=== PATIENT | female | born 1995 | race Caucasian/White ===

== ENCOUNTER 2019-06-29 08:37 | Emergency (ER) | payer BC ==
[~2019-06-29] VITALS: Ht 175.3 cm; Wt 93.0 kg
[2019-06-29] MEDS: IV NORMAL SALINE 1000ML BAG 1,000 ML IV SCH (09:44)
[2019-06-29] MEDS: ONDANSETRON PF 4 MG/2 ML VIAL. IV ONE (09:45)
[2019-06-29] MEDS: KETOROLAC 30 MG/ML VIAL. IV ONE (09:46)
[2019-06-29 09:47] LABS: BASO # 0.1 x10^3/uL (0.0-0.2); BASO % 1 % (0-3); EOS # 0.1 x10^3/uL (0.0-0.7); EOS % 1 % (0-3); HEMATOCRIT 42.7 % (36.0-47.0); HEMOGLOBIN 14.7 g/dL (12.0-15.5); LYMPH # 1.5 x10^3/uL (1.0-4.8); LYMPH % 14 % (24-48); MEAN CORPUSCULAR HEMOGLOBIN 30 pg (25-35); MEAN CORPUSCULAR HGB CONC 35 g/dL (31-37); MEAN CORPUSCULAR VOLUME 88 fL (79-100); MONO # 0.7 x10^3/uL (0.0-1.1); MONO % 7 % (0-9); NEUT # 8.4 x10^3/uL (1.8-7.7); NEUT % 78 % (31-73); PLATELET COUNT 332 x10^3/uL (140-400); RED BLOOD COUNT 4.88 x10^6/uL (3.50-5.40); RED CELL DISTRIBUTION WIDTH 12.5 % (11.5-14.5); WHITE BLOOD COUNT 10.9 x10^3/uL (4.0-11.0)
[2019-06-29 09:52] LABS: BILIRUBIN,URINE NEGATIVE (NEG); CLARITY,URINE CLEAR; COLOR,URINE YELLOW; NITRITE,URINE NEGATIVE (NEG); PH,URINE 7.5; PROTEIN,URINE NEGATIVE (NEG-TRACE); UROBILINOGEN,URINE 0.2 mg/dL (0.2 mg/dL)
[2019-06-29 09:54] LABS: CALCIUM 9.1 mg/dL (8.5-10.1); CREATININE 0.8 mg/dL (0.6-1.0); GFR 87.4; POTASSIUM 3.7 mmol/L (3.5-5.1)
[2019-06-29 10:01] LABS: TOTAL BILIRUBIN 0.5 mg/dL (0.2-1.0)
--- NOTE | 2019-06-29 10:06 | PHYS DOC ---
Past Medical History Past Medical History: Asthma Past Surgical History: Other Additional Past Surgical Histo: "throat surgery" wisdom teeth Alcohol Use: Rarely Drug Use: Marijuana Social History Narrative: last use yesterday Adult General Chief Complaint Chief Complaint: VAGINAL PROBLEM HPI HPI Patient is a 24 year old female with history of asthma who presents with compl aining of"uterus pain". Patient complaining of pelvic pain since yesterday as a constant sharp and shooting pain without vaginal bleeding or discharge, urinary symptoms, fever and chills. Patient states she had nausea and one episode of vomiting last night. Patient states she had increase of pain during intercourse last night and rated her pain 10 over 10. Patient denies history of STD and the same pain. Patient is with LMP of June 05. Review of Systems Review of Systems Constitutional: Denies fever or chills [] Eyes: Denies change in visual acuity, redness, or eye pain [] HENT: Denies nasal congestion or sore throat [] Respiratory: Denies cough or shortness of breath [] Cardiovascular: No additional information not addressed in HPI [] GI: Reports abdominal pain, nausea, vomiting, denies bloody stools or diarrhea [] : Denies dysuria or hematuria [] Musculoskeletal: Denies back pain or joint pain [] Integument: Denies rash or skin lesions [] Neurologic: Denies headache, focal weakness or sensory changes [] Endocrine: Denies polyuria or polydipsia [] All other systems were reviewed and found to be within normal limits, except as documented in this note. Current Medications Current Medications Current Medications Medications (Trade) Dose Ordered Sig/[facility] Start Time Stop Time Status Last Admin Dose Admin Ketorolac Tromethamine (Toradol 30mg Vial) 30 mg 1X ONCE 06/29/19 09:45 06/29/19 09:46 DC 06/29/19 09:46 30 MG Ondansetron HCl (Zofran) 4 mg 1X ONCE 06/29/19 09:45 06/29/19 09:46 DC 06/29/19 09:45 4 MG Sodium Chloride 1,000 ml @ 1,000 mls/hr Q1H 06/29/19 09:32 06/29/19 10:31 DC 06/29/19 09:44 1,000 MLS/HR Allergies Allergies Allergies Coded Allergies Type Severity Reaction Last Updated Verified No Known Drug Allergies 06/29/19 No Physical Exam Physical Exam Constitutional: Well developed, well nourished, mild distress, non-toxic appearance. [] HENT: Normocephalic, atraumatic. Eyes: PERRLA, EOMI, conjunctiva normal, no discharge. [] Neck: Normal range of motion, no tenderness, supple, no stridor. [] Cardiovascular:Heart rate regular rhythm, no murmur [] Lungs & Thorax: Bilateral breath sounds clear to auscultation [] Abdomen: Bowel sounds normal, soft, no tenderness, no masses, no pulsatile masses. Vaginal exam with present of career counselor showed normal external vagina, small amount of discharge in the vagina, no adnexal tenderness or fullness. Skin: Warm, dry, no erythema, no rash. [] Back: No tenderness, no CVA tenderness. [] Extremities: No tenderness, no cyanosis, no clubbing, ROM intact, no edema. [] Neurologic: Alert and oriented X 3, no focal deficits noted. [] Psychologic: Affect normal, judgement normal, mood normal. [] Current Patient Data Vital Signs Vital Signs Date Time Temp Pulse Resp B/P (MAP) Pulse Ox O2 Delivery O2 Flow Rate FiO2 06/29/19 11:00 62 14 101/60 (74) 99 Room Air 06/29/19 08:50 98.6 98.6 Lab Values Laboratory Tests Test 06/29/19 08:52 06/29/19 09:04 06/29/19 09:40 Urine Collection Type Unknown Urine Color Yellow Urine Clarity Clear Urine pH 7.5 Urine Specific [place] 1.010 Urine Protein Negative mg/dL (NEG-TRACE) Urine Glucose (UA) Negative mg/dL (NEG) Urine Ketones (Stick) Negative mg/dL (NEG) Urine Blood Negative (NEG) Urine Nitrite Negative (NEG) Urine Bilirubin Negative (NEG) Urine Urobilinogen Dipstick 0.2 mg/dL (0.2 mg/dL) Urine Leukocyte Esterase Negative (NEG) Urine RBC 0 /HPF (0-2) Urine WBC 0 /HPF (0-4) Urine Squamous Epithelial Cells Few /LPF Urine Bacteria Few /HPF (0-FEW) POC Urine HCG, Qualitative Hcg negative (Negative) White Blood Count 10.9 x10^3/uL (4.0-11.0) Red Blood Count 4.88 x10^6/uL (3.50-5.40) Hemoglobin 14.7 g/dL (12.0-15.5) Hematocrit 42.7 % (36.0-47.0) Mean Corpuscular Volume 88 fL (79-100) Mean Corpuscular Hemoglobin 30 pg (25-35) Mean Corpuscular Hemoglobin Concent 35 g/dL (31-37) Red Cell Distribution Width 12.5 % (11.5-14.5) Platelet Count 332 x10^3/uL (140-400) Neutrophils (%) (Auto) 78 % (31-73) H Lymphocytes (%) (Auto) 14 % (24-48) L Monocytes (%) (Auto) 7 % (0-9) Eosinophils (%) (Auto) 1 % (0-3) Basophils (%) (Auto) 1 % (0-3) Neutrophils # (Auto) 8.4 x10^3/uL (1.8-7.7) H Lymphocytes # (Auto) 1.5 x10^3/uL (1.0-4.8) Monocytes # (Auto) 0.7 x10^3/uL (0.0-1.1) Eosinophils # (Auto) 0.1 x10^3/uL (0.0-0.7) Basophils # (Auto) 0.1 x10^3/uL (0.0-0.2) Sodium Level 140 mmol/L (136-145) Potassium Level 3.7 mmol/L (3.5-5.1) Chloride Level 101 mmol/L (98-107) Carbon Dioxide Level 26 mmol/L (21-32) Anion Gap 13 (6-14) Blood Urea Nitrogen 11 mg/dL (7-20) Creatinine 0.8 mg/dL (0.6-1.0) Estimated GFR (Cockcroft-Gault) 87.4 BUN/Creatinine Ratio 14 (6-20) Glucose Level 109 mg/dL (70-99) H Calcium Level 9.1 mg/dL (8.5-10.1) Total Bilirubin 0.5 mg/dL (0.2-1.0) Aspartate Amino Transferase (AST) 16 U/L (15-37) Alanine Aminotransferase (ALT) 15 U/L (14-59) Alkaline Phosphatase 73 U/L (46-116) Total Protein 8.0 g/dL (6.4-8.2) Albumin 4.0 g/dL (3.4-5.0) Albumin/Globulin Ratio 1.0 (1.0-1.7) Laboratory Tests 06/29/19 09:40 Laboratory Tests 06/29/19 09:40 Microbiology 06/29/19 Wet Prep - Final, Complete EKG EKG [] Radiology/Procedures Radiology/Procedures [][facility] [address] [place] [address] IMAGING REPORT Signed PATIENT: ADDISON WANG ACCOUNT: [id number] : 1995 LOCATION: ER AGE: 24 SEX: F EXAM STATUS: REG ER ORD. PHYSICIAN: YULISA MONTGOMERY MD REASON: pelvic pain PROCEDURE: PELVIS COMPLETE Pelvic ultrasound HISTORY: Postcoital pain. FINDINGS: Uterus measures 7.3 x 5.5 x 3.9 cm. Endometrium is uniformly hyperechoic, measuring 12 mm, likely due to secretory phase of cycle. Right ovary measures 3.7 cm with intact blood flow and no focal mass. Left ovary measures 3.0 cm with intact blood flow and no evidence of a mass. No significant free pelvic fluid. IMPRESSION: No definite sonographic abnormality. Electronically signed by: Saulo Kaiser MD (06/29/2019 10:16 AM) [facility] DICTATED and SIGNED BY: SAULO KAISER MD DATE: 06/29/19 1016 Course & Med Decision Making Course & Med Decision Making Pertinent Labs and Imaging studies reviewed. (See chart for details) Evaluation of patient in ER showed 24-year-old male patient with complaining of pelvic pain since last night with nausea and one episode of vomiting. Patient had unremarkable physical exam, pelvic ultrasound and labs and vaginal exam. Patient felt better with treatment in ER. I've spoken with the patient and/or caregivers. I've explained the patient's condition, diagnosis and treatment plan based on information available to me at this time. I've answered the patient's and/or caregivers questions and addressed any concerns. The patient and/or caregivers have a good understanding the pat ient's diagnosis, condition and treatment plan as can be expected at this point. Vital signs have been stabilized. The patient's condition is stable for discharge from the emergency department. The patient will pursue further outpatient evaluation with her primary care provider or other designated consulting physician as outlined in the discharge instructions. Patient and/or caregivers are agreeable to this plan of care and follow-up instructions have been explained in detail. The patient and/or caregivers have received these instructions in written format and expressed understanding of these discharge instructions. The patient and her caregivers are aware that if any significant change in condition or worsening of symptoms should prompt him to immediately return to this of the closest emergency department. If an emergent department is not readily available I would encourage him to call 911. Dragon Disclaimer Dragon Disclaimer This electronic medical record was generated, in whole or in part, using a voice recognition dictation system. Departure Departure Impression: Primary Impression: Pelvic pain Additional Impression: Nausea and vomiting Disposition: HOME, SELF-CARE (at 1112) Condition: IMPROVED Referrals: HALIE JORDAN (PCP) Patient Instructions: Nausea and Vomiting, Pelvic Pain, Female Additional Instructions: Drink plenty of liquids Follow-up with your primary care physician in 3-5 days Return to ER if not getting better Scripts Ondansetron Hcl (ZOFRAN) 4 Mg Tablet 1 TAB PO PRN Q6-8HRS for nausea, #12 TAB Prov: YULISA MONTGOMERY MD 06/29/19 Naproxen (NAPROSYN) 500 Mg Tablet 1 TAB PO BID for pain, #20 TAB Prov: YULISA MONTGOMERY MD 06/29/19 Problem Qualifiers Additional Impression: Nausea and vomiting Vomiting type: unspecified Vomiting Intractability: non-intractable Qualified Codes: R11.2 - Nausea with vomiting, unspecified YULISA MONTGOMERY MD Jun 29, 2019 10:06
--- NOTE | 2019-06-29 10:19 | RAD ---
Pelvic ultrasound HISTORY: Postcoital pain. FINDINGS: Uterus measures 7.3 x 5.5 x 3.9 cm. Endometrium is uniformly hyperechoic, measuring 12 mm, likely due to secretory phase of cycle. Right ovary measures 3.7 cm with intact blood flow and no focal mass. Left ovary measures 3.0 cm with intact blood flow and no evidence of a mass. No significant free pelvic fluid. IMPRESSION: No definite sonographic abnormality. Electronically signed by: Saulo Kaiser MD (06/29/2019 10:16 AM) [id number]
[2019-06-29 10:33] LABS: BACTERIA,URINE FEW /HPF (0-FEW); RBC,URINE 0 /HPF (0-2); SQUAMOUS EPITHELIAL CELL,UR FEW /LPF; WBC,URINE 0 /HPF (0-4)
[2019-06-29 11:00] VITALS: BP 101/60
[2019-06-29] MEDS ORDERED: NAPR-683 PO ×2 (11:14→11:15)
[2019-06-29] MEDS ORDERED: ONDA4TAB7 PO ×2 (11:14→11:15)
[2019-07-01 22:07] LABS: GC PROBE Negative (Negative)
== END 2019-06-29 11:28 | disposition home or self-care (01) ==
LOC: ER 08:37
DX: R10.2 Pelvic and perineal pain (principal); R11.2 Nausea with vomiting, unspecified; J45.909 Unspecified asthma, uncomplicated
CPT/HCPCS: 36415; 76856; 80053; 81001; 81025; 85025; 87491; 87591; 96361; 96374; 96375; 99285; J1885; J2405; J7030; Q0111